=== PATIENT | female | born 1955 | race Caucasian/White ===

== ENCOUNTER → 2021-03-16 14:42 | Outpatient (CLI) | payer OTHER, SELFPAY ==
--- NOTE | 2021-03-16 14:50 | CT_ITS ---
STUDY: CT SCAN LOWER EXTREMITY LEFT REASON FOR EXAM: Female, 66 years old. VARUS DEFORMITY. GERMÁN protocol. RADIATION DOSAGE (If Supplied By Facility): CTDIvol = ( 18.76 ) mGy, DLP = ( 1594.67 ) mGycm. Individualized dose optimization techniques were used for this CT.? TECHNIQUE: Multiple axial tomographic images of the left hip joint, left knee joint and left ankle joints were obtained. Sagittal and coronal reconstructions obtained as well. COMPARISON: None. FINDINGS: Imaging of the hip joint was obtained. There is a mild degree of joint space narrowing. No fracture or dislocation is seen. Imaging of the knee joint was obtained. Mild degree of joint space narrowing of the medial compartment of the joint with degenerative spur formation. Mild degree of patellofemoral osteoarthritis and joint space narrowing. Imaging of the left ankle joint was obtained. There is evidence of an old avulsion fracture of the medial malleolus. CT/Extremity Lower without Contra IMPRESSION: Mild degree of joint space narrowing of the medial compartment of the knee joint and patellofemoral joint with evidence of degenerative spur formation. Mild degree of joint space narrowing of the left hip joint. Electronically Signed: Momo Paige MD at 12:05 EDT , Service support ,
== END ==
PROVIDERS: PCP Internal Medicine; Referring Provider Specialist; Visit Provider Specialist
DX: M21.162 Varus deformity, not elsewhere classified, left knee (principal)
CPT/HCPCS: 73700

== ENCOUNTER → 2021-03-17 14:06 | Outpatient (CLI) | payer OTHER, SELFPAY ==
--- NOTE | 2021-03-17 14:19 | EKG12_ITS ---
Test Reason : PRE OP Blood Pressure : / mmHG Vent. Rate : 066 BPM Atrial Rate : 066 BPM P-R Int : 128 ms QRS Dur : 096 ms QT Int : 392 ms P-R-T Axes : 057 043 048 degrees QTc Int : 410 ms Normal sinus rhythm Normal ECG Confirmed by PINA VARGAS, LELE ([id number]), restaurant expeditor SAMANTA MERRILL ([id number]) on 03/22/2021 11:28:07 AM Referred By: CLARK Confirmed By:MEI HELLER MD
[2021-03-17 14:43] LABS: Absolute Lymphocyte Count 2.76 X10^3/uL (0.83-4.51); Absolute Neutrophil Count 4.3 X10^3/uL (2.0-7.7); Basophil# 0.05 X10^3/uL; Basophil% 0.6 % (0-1); Eosinophil# 0.12 X10^3/uL; Eosinophils% 1.5 % (0-5); Hematocrit 38.7 % (37-47); Hemoglobin 12.6 g/dL (12.0-15.0); Lymphocyte # 2.76 X10^3/ul (0.83-4.51); Lymphocyte % 35.4 % (19-41); Mean Corp Hgb Conc 32.6 g/dL (32-36); Mean Corpuscular Hgb 29.4 pg (27.0-32.0); Mean Corpuscular Volume 90.2 fL (81-99); Mean Platelet Vol. 11.5 fl (6.2-12.0); Monocyte# 0.52 X10^3/uL; Monocyte% 6.7 % (0-10); NRBC Flagged by Analyzer 0 % (0-5); Neutrophil # 4.31 X10^3/uL (2.7-7.7); Neutrophil % 55.4 % (47-70); Platelet Count 252 K/mm3 (150-450); RBC Distribution Width SD 39.5 fl (35.1-43.9); Red Blood Count 4.29 M/mm3 (4.2-5.4); White Blood Count 7.8 K/mm3 (4.4-11.0)
[2021-03-17 15:07] LABS: Albumin, Serum 3.3 g/dL (3.2-5.0); Anion Gap 7 (5-15); BUN 18 mg/dL (7-18); BUN/Creat Ratio 23.3 RATIO (10-20); Calcium,Total 9.2 mg/dL (8.5-10.1); Chloride 106 mmol/L (98-107); Creatinine, Serum 0.77 mg/dL (0.55-1.02); EST Glomerular Filtration Rate 80 mL/min (>60); Est Glom Filt Rate - Afr Amer 97 mL/min (>60); Glucose 101 mg/dL (74-106); Potassium 3.8 mmol/L (3.5-5.1); Sodium Level 142 mmol/L (136-145)
== END ==
PROVIDERS: PCP Internal Medicine; Visit Provider Physician Assistant Surgical
DX: Z01.818 Encounter for other preprocedural examination (principal); Z01.810 Encounter for preprocedural cardiovascular examination
CPT/HCPCS: 36415; 80048; 82040; 85025; 93005